=== PATIENT | female | born 1965 | race Caucasian/White ===

== ENCOUNTER 2017-05-25 20:25 | Emergency (ER) | payer OTHER ==
[2017-05-25 20:49] VITALS: BP 107/84; PULSE 81; RESP 16; TEMP 97.7; O2SAT 98
--- NOTE | 2017-05-25 21:04 | PD ---
HPI Chief Complaint: Respiratory Symptoms Time Seen by Provider: 21:00 Travel History International Travel<30 days: No Contact w/Intl Traveler<30days: No Traveled to known affect area: No History of Present Illness HPI Patient is a 52-year-old female with a history of achalasia and esophageal spasm presents emergency department for evaluation of chest pain and shortness of breath. Patient states it feels like every other episode she is ever had with her esophageal spasm. She states that she has been worked up for cardiac causes several times in the past and her tailer in has told her that her symptoms are not from cardiac etiology but from her esophagus. The last workup she states was very recently. She is visiting from out of town. No nausea no vomiting no abdominal pain no radiation into her arm or her neck, no headache. She states she was eating horseradish at dinner tonight when her pain started and was computed with shortness of breath which only lasted for a few seconds and is now resolved. Patient states my initial encounter that she wishes to go home. She states the symptoms were severe but resolved, context as above, associated signs and symptoms as above. PFSH Past Medical History Narrative Medical Achalasia, aortic valve replacement Past Surgical History Narrative Surgical Esophageal surgery, aortic valve replacement Social History Tobacco Use: No Allergies-Medications (Allergen,Severity, Reaction): Coded Allergies: Penicillins (Verified Allergy, Unknown, 05/25/17) Reported Meds & Prescriptions Reported Meds & Active Scripts Active Reported Baclofen 10 Mg Tab 10 Mg PO TID Aspirin Children's (Aspirin) 81 Mg Chew 81 Mg CHEW DAILY Dexilant (Dexlansoprazole) 60 Mg Cap.bp Review of Systems Except as stated in HPI: all other systems reviewed are Neg Physical Exam Narrative GENERAL: Well-developed well-nourished, no obvious distress SKIN: Focused skin assessment warm/dry. HEAD: Atraumatic. Normocephalic. EYES: Pupils equal and round. No scleral icterus. No injection or drainage. ENT: No nasal bleeding or discharge. Mucous membranes pink and moist. NECK: Trachea midline. No JVD. CARDIOVASCULAR: Regular rate and rhythm. No murmur appreciated. 2+ bilateral equal pulses in all 4 extremity RESPIRATORY: No accessory muscle use. Clear to auscultation. Breath sounds equal bilaterally. GASTROINTESTINAL: Abdomen soft, non-tender, nondistended. Hepatic and splenic margins not palpable. MUSCULOSKELETAL: No obvious deformities. No clubbing. No cyanosis. No edema. NEUROLOGICAL: Awake and alert. No obvious cranial nerve deficits. Motor grossly within normal limits. Normal speech. PSYCHIATRIC: Appropriate mood and affect; insight and judgment normal. Data Data Last Documented VS Vital Signs Date Time Temp Pulse Resp B/P (MAP) Pulse Ox O2 Delivery O2 Flow Rate FiO2 05/25/17 21:02 16 100 Nasal Cannula 05/25/17 20:49 97.7 81 107/84 (92) Orders Orders Electrocardiogram (05/25/17 20:48) Ed Discharge Order (05/25/17 21:35) [facility] Medical Decision Making Medical Screen Exam Complete: Yes Emergency Medical Condition: Yes Differential Diagnosis ACS is possible but seems unlikely, esophageal spasm, PE highly unlikely Narrative Course Patient was room to the emergency department, PE is excludable by [facility] and PERC criteria. Patient states his symptoms are highly in line with her prior esophageal spasms and wishes for discharge. I did discuss the possibility of ACS with her but she states she has had a recent workup which was negative. Her EKG and chest x-ray were negative here. The patient appears asymptomatic and would rather follow-up with her primary care physician. She was encouraged to return anytime her symptoms should recur for an additional workup at this time she is stable for discharge. Discussed avoiding spicy and acidic foods. Diagnosis Primary Impression: Chest pain Disposition: 01 DISCHARGE HOME Condition: Stable Garret Chan MD May 25, 2017 21:04
[2017-05-25] MEDS ORDERED: DEXI60CA3 (21:11)
[2017-05-25] MEDS ORDERED: ASPI81CH7 CHEW (21:13)
[2017-05-25] MEDS ORDERED: BACL10TA PO (22:11)
--- NOTE | 2017-05-26 12:57 | EKG ---
Date Performed: 05/25/2017 Time Performed: 20:48:59 PTAGE: 52 years EKG: Sinus rhythm NONSPECIFIC T-WAVE ABNORMALITY BORDERLINE ECG NO PREVIOUS TRACING DOCTOR: Jeffrey Lainez Interpretating Date/Time 05/26/2017 12:56:01
== END 2017-05-25 22:26 | disposition home or self-care (01) ==
LOC: NEPC 20:25
DX: R07.9 Chest pain, unspecified (principal); R06.02 Shortness of breath; K22.0 Achalasia of cardia; R94.31 Abnormal electrocardiogram [ECG] [EKG]; Z95.2 Presence of prosthetic heart valve; Z88.0 Allergy status to penicillin; Z79.82 Long term (current) use of aspirin; Z79.899 Other long term (current) drug therapy
CPT/HCPCS: 93005; 99283